=== PATIENT | female | born 1995 | race Caucasian/White ===

== ENCOUNTER 2021-09-18 16:09 | Inpatient (IN) | payer MEDICAID, OTHER ==
[~2021-09-18] VITALS: Ht 152.4 cm; Wt 56.3 kg
[2021-09-18] MEDS ORDERED: MELA3TAB89 PO (17:19)
[2021-09-18] MEDS ORDERED: HYDR-4808 PO (17:22)
[2021-09-18] MEDS ORDERED: CITA-144 PO (17:23)
[2021-09-18] MEDS ORDERED: BUPR-49 PO (17:31)
[2021-09-18 18:02] LABS: COVID AG,FIA SOURCE NASAL SWAB
[2021-09-18 18:13] LABS: AMPHET/METH SCREEN,URINE NEGATIVE (NEGATIVE); BARBITURATE SCREEN, URINE NEGATIVE (NEGATIVE); BENZODIAZEPINES SCREEN,URINE NEGATIVE (NEGATIVE); CANNABINOID SCREEN,URINE NEGATIVE (NEGATIVE); COCAINE SCREEN,URINE NEGATIVE (NEGATIVE); METHADONE SCREEN, URINE NEGATIVE (NEGATIVE); OPIATE SCREEN,URINE NEGATIVE (NEGATIVE)
[2021-09-18 18:15] LABS: PHENCYCLIDINE SCREEN,URINE NEGATIVE (NEGATIVE)
[2021-09-18] MEDS ORDERED: ZOLPIDEM TARTRATE 10 MG TABLET PO PRN (19:00)
[2021-09-18] MEDS ORDERED: HALOPERIDOL 5 MG TABLET PO PRN (19:00)
[2021-09-18] MEDS ORDERED: LORazepam 2 MG TABLET PO PRN (19:00)
[2021-09-18 20:18] VITALS: BP 115/69
[2021-09-19] MEDS ORDERED: CloNIDine HCL 0.1 MG TABLET PO PRN (06:30)
[2021-09-19] MEDS ORDERED: ONDANSETRON HCL 4 MG TABLET PO PRN (06:30)
[2021-09-19] MEDS ORDERED: NICOTINE 14 MG/24 HOUR PATCH TD PRN (06:30)
[2021-09-19] MEDS ORDERED: PETROLATUM,WHITE 28 GM JELLY TP PRN (06:30)
[2021-09-19] MEDS ORDERED: DOCUSATE SODIUM 100 MG CAPSULE PO PRN (06:30)
[2021-09-19] MEDS ORDERED: MELATONIN 3 MG TABLET PO PRN (06:30)
[2021-09-19] MEDS ORDERED: MAGNESIUM HYDROXIDE SUSPENSION 30 ML UDCUP PO PRN (06:30)
[2021-09-19] MEDS ORDERED: GuaiFENesin/D-METHORPHAN [SUGAR-FREE] 200-20MG/10 ML SYRUP UDCUP PO PRN (06:30)
[2021-09-19] MEDS ORDERED: ALBUTEROL SULFATE HFA 90 MCG/PUFF 8 GM INHALER IH PRN (06:30)
[2021-09-19] MEDS ORDERED: MAG HYDROX/AL HYDROX/SIMETH ES 30 ML SUSPENSION UDCUP PO PRN (06:30)
[2021-09-19] MEDS ORDERED: ACETAMINOPHEN 325 MG TABLET PO PRN (06:30)
[2021-09-19] MEDS ORDERED: LOPERAMIDE HCL 2 MG CAPSULE PO PRN (06:30)
[2021-09-19 09:10] VITALS: BP 131/86
[2021-09-19] MEDS: CITALOPRAM HYDROBROMIDE 20 MG TABLET PO SCH (13:53)
[2021-09-19] MEDS: BuPROPion HCL XL 150 MG ER TABLET PO SCH (13:53)
[2021-09-19 15:40] LABS: APPEARANCE,URINE HAZY (CLEAR); BILIRUBIN,URINE NEGATIVE (NEGATIVE); GLUCOSE, URINE (UA) NEGATIVE (NEGATIVE); KETONES,URINE NEGATIVE (NEGATIVE); LEUKOCYTE ESTERASE ,URINE MODERATE (NEGATIVE); NITRATE,URINE NEGATIVE (NEGATIVE); OCCULT BLOOD,URINE NEGATIVE (NEGATIVE); PH,URINE 8.5 (5.0-8.0); PROTEIN,URINE 100-200,SEE CONFIRM mg/dL (NEGATIVE); SPECIFIC GRAVITIY, URINE 1.029 (1.003-1.030)
[2021-09-19 15:47] LABS: AMPHET/METH SCREEN,URINE NEGATIVE (NEGATIVE); BARBITURATE SCREEN, URINE NEGATIVE (NEGATIVE); BENZODIAZEPINES SCREEN,URINE NEGATIVE (NEGATIVE); CANNABINOID SCREEN,URINE NEGATIVE (NEGATIVE); COCAINE SCREEN,URINE NEGATIVE (NEGATIVE); METHADONE SCREEN, URINE NEGATIVE (NEGATIVE); OPIATE SCREEN,URINE NEGATIVE (NEGATIVE)
[2021-09-19 15:55] LABS: PHENCYCLIDINE SCREEN,URINE NEGATIVE (NEGATIVE)
[2021-09-19 16:17] LABS: SULFOSALICYLIC ACID,URINE 2+ (Negative)
[2021-09-19 16:18] LABS: BACTERIA,URINE Many /HPF (None Seen); SQUAMOUS EPITHELIAL CELL,UR Many /LPF (None Seen); WBC,URINE 0-2 /HPF (0-5)
[2021-09-19 16:54] VITALS: BP 108/68
[2021-09-19] MEDS: MELATONIN 5 MG TABLET PO SCH (20:14)
[2021-09-20 01:00] VITALS: BP 107/69
[2021-09-20] MEDS: IBUPROFEN 400 MG TABLET PO PRN (01:07)
[2021-09-20 09:00] VITALS: BP 136/96
[2021-09-20] MEDS: CITALOPRAM HYDROBROMIDE 20 MG TABLET PO SCH (09:05)
[2021-09-20] MEDS: BuPROPion HCL XL 150 MG ER TABLET PO SCH (09:05)
[2021-09-20 16:11] VITALS: BP 116/78
[2021-09-20] MEDS: MELATONIN 5 MG TABLET PO SCH (20:19)
[2021-09-21] MEDS: BuPROPion HCL XL 150 MG ER TABLET PO SCH (08:06)
[2021-09-21] MEDS: CITALOPRAM HYDROBROMIDE 20 MG TABLET PO SCH (08:06)
[2021-09-21 10:22] VITALS: BP 117/82
[2021-09-21 17:27] VITALS: BP 109/74
[2021-09-21] MEDS: MELATONIN 5 MG TABLET PO SCH (20:20)
[2021-09-21] MEDS: CEPHALEXIN MONOHYDRATE 250 MG CAPSULE PO SCH (20:20)
[2021-09-22] MEDS: BuPROPion HCL XL 150 MG ER TABLET PO SCH (08:46)
[2021-09-22] MEDS: CITALOPRAM HYDROBROMIDE 20 MG TABLET PO SCH (08:46)
[2021-09-22] MEDS: CEPHALEXIN MONOHYDRATE 250 MG CAPSULE PO SCH ×3 (08:47→16:47)
[2021-09-22 08:50] VITALS: BP 125/74
[2021-09-22 08:55] VITALS: BP 125/74
[2021-09-22 09:50] VITALS: BP 124/76
[2021-09-22 16:43] VITALS: BP 110/80
[2021-09-22] MEDS: MELATONIN 5 MG TABLET PO SCH (20:41)
[2021-09-23 06:35] VITALS: BP 107/72
[2021-09-23] MEDS: CEPHALEXIN MONOHYDRATE 250 MG CAPSULE PO SCH ×3 (08:33→16:07)
[2021-09-23] MEDS: BuPROPion HCL XL 150 MG ER TABLET PO SCH (08:33)
[2021-09-23] MEDS: CITALOPRAM HYDROBROMIDE 20 MG TABLET PO SCH (08:33)
[2021-09-23 09:00] VITALS: BP 111/71
[2021-09-23 16:00] VITALS: BP 108/63
[2021-09-23] MEDS: IBUPROFEN 400 MG TABLET PO PRN (16:08)
[2021-09-23 17:15] VITALS: BP 102/65
[2021-09-23] MEDS: MELATONIN 5 MG TABLET PO SCH (20:26)
[2021-09-24 03:48] VITALS: BP 108/66
[2021-09-24] MEDS: BuPROPion HCL XL 150 MG ER TABLET PO SCH (08:11)
[2021-09-24] MEDS: CITALOPRAM HYDROBROMIDE 20 MG TABLET PO SCH (08:11)
[2021-09-24] MEDS: CEPHALEXIN MONOHYDRATE 250 MG CAPSULE PO SCH ×2 (08:13→12:37)
[2021-09-24 09:13] VITALS: BP 128/80
[2021-09-24 09:30] VITALS: BP 128/80
[2021-09-24] MEDS: IBUPROFEN 400 MG TABLET PO PRN (09:34)
[2021-09-24] MEDS ORDERED: CEPH-556 PO (10:28)
[2021-09-24] MEDS ORDERED: MELA5TAB40 PO (11:13)
[2021-09-24] MEDS ORDERED: CITA-144 PO (11:13)
[2021-09-24] MEDS ORDERED: BUPR-49 PO (11:13)
== END 2021-09-24 14:00 | disposition home or self-care (01) | DRG 751 ==
LOC: EMS 16:14 → 3EI 18:52
PROVIDERS: ADMIT Psychiatry & Neurology Child & Adolescent Psychiatry; ATTEND Psychiatry & Neurology Child & Adolescent Psychiatry
DX: F33.2 Major depressive disorder, recurrent severe without psychotic features (principal); R45.851 Suicidal ideations; F41.9 Anxiety disorder, unspecified; F84.0 Autistic disorder; N39.0 Urinary tract infection, site not specified; S50.812A Abrasion of left forearm, initial encounter; X78.8XXA Intentional self-harm by other sharp object, initial encounter; Z20.822 Contact with and (suspected) exposure to COVID-19; Y93.89 Activity, other specified; Y92.89 Other specified places as the place of occurrence of the external cause; Y99.8 Other external cause status
CPT/HCPCS: 80307; 81001; 81002; 84703; 87086; 99285; Q9967

== ENCOUNTER 2022-11-30 18:09 | Inpatient (IN) | payer MEDICAID, OTHER ==
[~2022-11-30] VITALS: Ht 152.4 cm; Wt 47.6 kg
[~2022-11-30 18:09] MED LIST: BUPR-49 PO; CEPH-556 PO; CITA-144 PO; MELA5TAB40 PO
[2022-11-30 19:59] LABS: BASOPHILS % (AUTO) 0.1 % (0.0-2.0); EOSINOPHILS % (AUTO) 0.1 % (1.0-6.0); HEMATOCRIT 35.1 % (36-46); LYMPHOCYTES # (AUTO) 0.2 K/uL (1.0-4.8); LYMPHOCYTES % (AUTO) 2.7 % (22.0-44.0); MEAN CORPUSCULAR HEMOGLOBIN 29.8 pg (26.0-34.0); MEAN CORPUSCULAR HGB CONC 34.2 G/dL (31.0-37.0); MEAN CORPUSCULAR VOLUME 87 fL (80-100); MONOCYTES # (AUTO) 0.3 K/uL (0.1-1.0); NEUTROPHILS # (AUTO) 5.7 K/uL (1.8-7.7); PLATELET COUNT (AUTO) 336 K/uL (150-450); RED BLOOD CELL COUNT(AUTO) 4.04 MIL/uL (4.00-5.20); RED CELL DISTRIBUTION WIDTH 12.9 % (11.5-14.5)
[2022-11-30 20:04] LABS: ANION GAP 15 mmol/L (8-16); CALCIUM, TOTAL 8.9 mg/dL (8.8-10.5); CARBON DIOXIDE 22 mmol/L (22-29); CHLORIDE 101 mmol/L (98-107); CREATININE 0.66 mg/dL (0.60-1.30); GLOMERULAR FILTR. RATE CALC > 60 mL/min (>60); GLUCOSE,RANDOM 97 mg/dL (70-110); POTASSIUM 3.5 mmol/L (3.5-5.1); SODIUM SERUM 138 mmol/L (136-145)
[2022-11-30 20:07] LABS: NEUTROPHILS % (AUTO) 92.1 % (40.0-70.0)
[2022-11-30 20:19] LABS: HCG,QUANTITATIVE < 1 mIU/mL (0-6)
[2022-11-30] MEDS: SODIUM CHLORIDE 0.9% 1,000 ML IV ONE ×2 (21:56→22:55)
[2022-11-30] MEDS: MAGNESIUM SULFATE 2 GM/WATER 50 ML IV ONE ×2 (22:23→23:04)
[2022-11-30] MEDS ORDERED: LORazepam 1 MG TABLET PO ONE (23:00)
[2022-12-01] MEDS ORDERED: ONDANSETRON HCL 4 MG/2 ML VIAL IVP PRN ×2 (02:45→11:00)
[2022-12-01] MEDS ORDERED: ACETAMINOPHEN 325 MG TABLET PO PRN ×2 (02:45→11:00)
[2022-12-01] MEDS ORDERED: 0.9% SODIUM CHLORIDE 10 ML SYRINGE IVP PRN (02:45)
[2022-12-01 03:17] LABS: APPEARANCE,URINE CLEAR (CLEAR); BILIRUBIN,URINE NEGATIVE (NEGATIVE); GLUCOSE, URINE (UA) NEGATIVE (NEGATIVE); KETONES,URINE 40-60 mg/dL (NEGATIVE); LEUKOCYTE ESTERASE ,URINE NEGATIVE (NEGATIVE); NITRATE,URINE NEGATIVE (NEGATIVE); OCCULT BLOOD,URINE NEGATIVE (NEGATIVE); PH,URINE 5.5 (5.0-8.0); PROTEIN,URINE NEGATIVE (NEGATIVE); SPECIFIC GRAVITIY, URINE 1.009 (1.003-1.030); UROBILINOGEN,URINE <=1.0 mg/dL (<=1.0)
[2022-12-01 03:24] LABS: AMPHET/METH SCREEN,URINE NEGATIVE (NEGATIVE); BARBITURATE SCREEN, URINE NEGATIVE (NEGATIVE); BENZODIAZEPINES SCREEN,URINE NEGATIVE (NEGATIVE); CANNABINOID SCREEN,URINE NEGATIVE (NEGATIVE); COCAINE SCREEN,URINE NEGATIVE (NEGATIVE); METHADONE SCREEN, URINE NEGATIVE (NEGATIVE); OPIATE SCREEN,URINE NEGATIVE (NEGATIVE); PHENCYCLIDINE SCREEN,URINE NEGATIVE (NEGATIVE)
[2022-12-01 03:28] LABS: BACTERIA,URINE None Seen /HPF (None Seen); RBC,URINE None Seen /HPF (0-2); SQUAMOUS EPITHELIAL CELL,UR Few /LPF (None Seen); WBC,URINE None Seen /HPF (0-5)
[2022-12-01] MEDS ORDERED: SODIUM CHLORIDE 0.9% 1,000 ML IV ONE (03:45)
[2022-12-01 06:45] VITALS: BP 102/60; PULSE 120; RESP 16; TEMP 98.7
[2022-12-01 08:05] VITALS: BP 97/61; PULSE 66; RESP 18; TEMP 98.3
[2022-12-01] MEDS ORDERED: ALPRAZolam 0.5 MG TABLET PO PRN (11:00)
[2022-12-01] MEDS ORDERED: MAGNESIUM HYDROXIDE SUSPENSION 30 ML UDCUP PO PRN (11:00)
[2022-12-01] MEDS ORDERED: MORPHINE SULFATE 2 MG/ML SYRINGE IVP PRN (11:00)
[2022-12-01] MEDS ORDERED: ZOLPIDEM TARTRATE 5 MG TABLET PO PRN (11:00)
[2022-12-01] MEDS ORDERED: HYDROCODONE/ACETAMINOPHEN 5-325 MG TABLET PO PRN (11:00)
[2022-12-01] MEDS ORDERED: BISACODYL 10 MG RECTAL RECTAL SUPPOSITORY PR PRN (11:00)
[2022-12-01 11:54] VITALS: BP 108/58; PULSE 121; RESP 18; TEMP 98.6; O2SAT 97
[2022-12-01] MEDS: HEPARIN SODIUM,PORCINE 5,000 UNITS/ML VIAL SQ SCH ×2 (15:03→23:47)
[2022-12-01 15:31] VITALS: BP 96/58; PULSE 104; RESP 18; TEMP 98.9
[2022-12-01 20:13] VITALS: BP 98/76; PULSE 116; RESP 18; TEMP 99.6
[2022-12-01] MEDS: DOCUSATE SODIUM 100 MG CAPSULE PO SCH (20:45)
[2022-12-01] MEDS ORDERED: MELATONIN 5 MG TABLET PO SCH (21:00)
[2022-12-02 00:07] VITALS: BP 93/57; PULSE 93; RESP 18; TEMP 98.3
[2022-12-02 04:49] VITALS: BP 99/62; PULSE 84; RESP 16; TEMP 98
[2022-12-02 07:15] VITALS: BP 111/50; PULSE 87; RESP 18; TEMP 98.3
[2022-12-02] MEDS: HEPARIN SODIUM,PORCINE 5,000 UNITS/ML VIAL SQ SCH (08:00)
[2022-12-02] MEDS: DOCUSATE SODIUM 100 MG CAPSULE PO SCH (08:40)
[2022-12-02] MEDS ORDERED: PANTOPRAZOLE SODIUM 40 MG DR TABLET PO SCH (09:00)
[2022-12-02] MEDS ORDERED: CITALOPRAM HYDROBROMIDE 20 MG TABLET PO SCH (09:00)
[2022-12-02] MEDS ORDERED: BuPROPion HCL XL 150 MG ER TABLET PO SCH (09:00)
[2022-12-02] MEDS ORDERED: ALPR-707 PO (11:26)
== END 2022-12-02 12:05 | disposition home or self-care (01) | DRG 756 ==
LOC: EMS 18:10 → 5S 12-01 04:01
PROVIDERS: ADMIT Hospitalist; ATTEND Hospitalist
DX: F41.9 Anxiety disorder, unspecified (principal); E78.00 Pure hypercholesterolemia, unspecified; R00.0 Tachycardia, unspecified; F32.A Depression, unspecified; F84.0 Autistic disorder; Z79.899 Other long term (current) drug therapy
CPT/HCPCS: 71045; 80048; 80307; 81001; 83735; 84443; 84702; 85025; 85379; 93005; 93306; 99291; J1644; J3475; Q9967; 36415-L1; 36415-TC